=== PATIENT | female | born 1965 | race Caucasian/White ===

== ENCOUNTER 2016-09-09 10:41 | Emergency (ER) | payer OTHER | END 2016-09-09 12:51 | disposition home or self-care (01) | LOC: ER1 10:41 | DX: F29 Unspecified psychosis not due to a substance or known physiological condition (principal); I10 Essential (primary) hypertension | CPT/HCPCS: 99284 ==

== ENCOUNTER → 2020-10-18 | Outpatient (CLI) | payer OTHER ==
[2020-10-18 17:28] LABS: HEMOGLOBIN 12.7 gm/dl (12.3-15.3); RED BLOOD COUNT 4.11 M/UL (4.00-5.10); WHITE BLOOD COUNT 7.7 K/UL (4.5-11.0)
[2020-10-20 08:10] LABS: THYROXINE (T4) 5.1 ug/dL (4.5-12.0); VITAMIN D, 25-HYDROXY 16.6 ng/mL (30.0-100.0)
== END ==
LOC: LAB 16:19
PROVIDERS: Nurse Practitioner
DX: F32.9 Major depressive disorder, single episode, unspecified (principal); F41.9 Anxiety disorder, unspecified; E78.5 Hyperlipidemia, unspecified; R53.83 Other fatigue; E55.9 Vitamin D deficiency, unspecified
CPT/HCPCS: 36415; 80053; 80061; 81001; 84436; 84443; 84480; 85025

== ENCOUNTER → 2020-11-21 | Outpatient (CLI) | payer OTHER ==
[2020-11-21 17:18] LABS: HEMOGLOBIN 12.5 gm/dl (12.3-15.3); RED BLOOD COUNT 4.04 M/UL (4.00-5.10); WHITE BLOOD COUNT 6.5 K/UL (4.5-11.0)
== END ==
LOC: LAB 16:40
PROVIDERS: Nurse Practitioner
DX: R53.83 Other fatigue (principal); R79.9 Abnormal finding of blood chemistry, unspecified; E55.9 Vitamin D deficiency, unspecified; E78.5 Hyperlipidemia, unspecified
CPT/HCPCS: 80053; 80061; 85025

== ENCOUNTER → 2021-01-15 | Outpatient (CLI) | payer OTHER | LOC: EXRD 14:52 | DX: N17.9 Acute kidney failure, unspecified (principal); R93.421 Abnormal radiologic findings on diagnostic imaging of right kidney; R93.422 Abnormal radiologic findings on diagnostic imaging of left kidney | CPT/HCPCS: 76775 ==

== ENCOUNTER → 2021-01-15 | Outpatient (CLI) | payer OTHER | LOC: LAB 15:21 | PROVIDERS: Internal Medicine Nephrology | DX: N17.9 Acute kidney failure, unspecified (principal); E78.5 Hyperlipidemia, unspecified | CPT/HCPCS: 36415; 80053; 82550; 82570; 84156; 89050 ==